=== PATIENT | female | born 1970 | race African-American/Black ===

== ENCOUNTER 2020-07-25 15:38 | Observation (INO) | payer BC, SELFPAY ==
[2020-07-25] VITALS (25 sets, daily range): BP systolic 159–263; BP diastolic 86–141; PULSE 76–101; RESP 12–27; TEMP 36–37.2; O2SAT 96–100; BMI 32.8
--- NOTE | ~2020-07-25 | XR_ITS ---
EXAMINATION: XR chest 2V DATE: 07/25/2020 16:21 INDICATION: Hypertension. Palpitations. TECHNIQUE: PA and lateral views of the chest were obtained. COMPARISON: None FINDINGS: Lung volumes appear mildly decreased. No focal airspace opacities, pulmonary edema, pleural effusion or pneumothorax. Cardiac silhouette is mildly enlarged. Mediastinal silhouette is normal. Mild thorac ic spondylosis. IMPRESSION: 1. Cardiomegaly. No acute cardiopulmonary disease.. Reviewed, dictated and finalized at location A.
--- NOTE | 2020-07-25 15:55 | ECG_ITS ---
Measurements Intervals [place] Rate: 74 P: 36 NM: 166 QRS: 25 QRSD: 90 T: 126 QT: 395 QTc: 439 Interpretive Statements SINUS RHYTHM LEFT VENTRICULAR HYPERTROPHY AND ST-T CHANGE BORDERLINE ECG Electronically Signed On 07-25-2020 16:13:46 CDT by Bulmaro Delvalle D.O.
[2020-07-25 16:09] LABS: Basophils Percent Auto 0.6 % (0.2-1.2); Eosinophils Absolute Auto 0.1 K/mm3 (0-0.3); Eosinophils Percent Auto 2.2 % (0-4.4); Hematocrit 37.3 % (37.0-47.0); Hemoglobin 11.5 g/dL (12.0-15.0); Immature Granulocyte Absolute 0.01 K/mm3 (0.00-0.031); Immature Granulocyte Percent A 0.3 % (0-0.5); Lymphocytes Percent Auto 31.5 % (18.3-44.2); Mean Corpuscular HGB Conc 30.8 g/dl (32-36); Mean Corpuscular Hemoglobin 24.9 pg (26-34); Mean Corpuscular Volume 80.7 fl (80-100); Mean Platelet Volume 10.4 fl (7.4-10.4); Monocytes Absolute Auto 0.4 K/mm3 (0.1-0.6); Monocytes Percent Auto 12.6 % (2.6-8.5); Neutrophils Absolute Auto 1.7 K/mm3 (1.3-6.7); Neutrophils Percent Auto 52.8 % (45.5-73.1); Platelet Count Result 249 k/mm3 (150-375); Red Blood Count 4.62 M/mm3 (4.2-5.4); Red Cell Distribution Width 15.4 % (11.5-14.5); White Blood Count 3.2 K/mm3 (4.5-10.0)
[2020-07-25 16:21] LABS: Alanine Aminotransferase 19 U/L (4-35); Albumin Level 4.1 g/dL (3.5-5.1); Alkaline Phosphatase 75 U/L (38-126); Anion Gap 8 mmol/L (8-16); Aspartate Amino Transferase 29 U/L (14-36); Bilirubin,Total 0.2 mg/dL (0.2-1.3); Blood Urea Nitrogen 14 mg/dL (7-17); Calcium 8.2 mg/dL (8.4-10.2); Carbon Dioxide 25 mmol/L (22-30); Chloride 104 mmol/L (98-107); Estimated CRCL calculation 86 ml/min; Estimated Glomerular Filt Rate > 60; Glucose 102 mg/dL (65-105); Potassium 3.1 mmol/L (3.4-5.0); Sodium 137 mmol/L (137-145)
[2020-07-25 16:25] LABS: Atypical Lymphocytes Present; Platelet Estimate Adequate (Adequate)
[2020-07-25 16:26] LABS: Hypochromasia 2+ (NORMAL)
--- NOTE | 2020-07-25 16:26 | ED.RECABL ---
HPI - Recheck/Abnormal Lab/Rx General Chief Complaint: Recheck/Abnormal Lab/Rx Stated Complaint: high bp Time Seen by Provider: 07/25/20 16:09 Source: RN notes reviewed History of Present Illness HPI narrative: Patient presents to emergency department from Dr. Delvalle's office for hypertension. Patient states he has a history of hypertension but stopped taking her medication several years ago she has not seen the doctor in several years went to the doctor today and noted to have blood pressure with a systolic of 260 she states that she has been asymptomatic she denies any headaches vision changes chest pain shortness of breath numbness tingling of the extremities or any other symptoms she states she has been having some intermittent palpitations but denies any palpitations at this time Related Data Allergies Allergy/AdvReac Type Severity Reaction Status Date / Time Penicillins Allergy Intermediate Hives / Verified 07/25/20 13:42 Red Face Review of Systems Review of Systems: Narrative: Gen.: Denies fevers or chills Eyes: Denies eye pain or visual change ENT: Denies congestion Respiratory: Denies shortness of breath or cough CV: See HPI GI: Denies abdominal pain nausea, emesis or diarrhea Musculoskeletal: Denies back pain or muscle pain Neuro: Denies numbness, tingling, weakness or focal weakness Skin: Denies rash Except as documented, all other systems reviewed and negative [facility] Past Medical History Medical History (Updated 07/25/20 @ 18:54 by Tomas Malave DO) Hypertension Social History Social History Smoking status: Current every day smoker Tobacco type: cigars Alcohol intake: current Gender identity (if verbalized by the patient): Female Exam Narrative: Exam Narrative: APPEARANCE: No acute distress, nontoxic, resting in bed EYES: EOMI HEENT: Normocephalic, atraumatic, OMM RESPIRATORY: No respiratory distress Clear to auscultation bilaterally with no rhonchi wheezing or rales. CARDIOVASCULAR: Regular rate and rhythm without murmurs rubs or gallops. ABDOMINAL: Soft, nontender, nondistended, no rebound or guarding MUSCULOSKELETAl: Moves all extremities. No clubbing, cyanosis or edema. NEURO: Awake and alert x 4. Following commands, speech normal, no focal deficits SKIN:: Warm, dry. No rashes lesions or abrasions PSYCHIATRIC: Normal affect/mood, Course Course Emergency Course: Discussed with Dr. Delavlle he does see the patient the office today wrote outpatient hypertensive medication today but he referred the patient to the ED for further evaluation Patient actually given hydralazine in ED but with continued elevated blood pressure Discussed with JUAN Torres for Dr. Lynch presentation work-up agrees with admission at this time. This time we will do gentle decrease of blood pressure and recommend starting patient on nifedipine XL 30 mg Discussed with patient and family results of workup and diagnosis. Discussed need for admission. Patient and family understand and agree to current treatment plan Vital Signs Vital signs: Vital Signs Temperature 97.1 F L 07/25/20 15:40 Pulse Rate 81 07/25/20 15:40 Respiratory Rate 18 07/25/20 15:40 Blood Pressure 263/111 H 07/25/20 15:40 Pulse Oximetry 98 07/25/20 15:40 Temperature 97.1 F L 07/25/20 15:40 Pulse Rate 87 07/25/20 18:45 Respiratory Rate 19 07/25/20 18:45 Blood Pressure 209/107 H 07/25/20 18:31 Pulse Oximetry 100 07/25/20 18:45 MDM - Recheck/Abnormal Lab/Rx Lab Data Result diagrams: 07/25/20 15:57 07/25/20 15:57 Labs: Lab Results 07/25/20 07/25/20 07/25/20 Range/Units 15:57 15:57 15:57 WBC 3.2 L (4.5-10.0) K/mm3 RBC 4.62 (4.2-5.4) M/mm3 Hgb 11.5 L (12.0-15.0) g/dL Hct 37.3 (37.0-47.0) % MCV 80.7 (80-100) fl MCH 24.9 L (26-34) pg MCHC 30.8 L (32-36) g/dl RDW 15.4 H (11.5-14.5) % Plt Count
[2020-07-25 16:30] LABS: Add Urine Microscopic? YES; Appearance Urine Cloudy (Clear); Bacteria Urine Trace /hpf; Bilirubin Urine Negative (Negative); Blood Urine Negative (Negative); Color Urine Yellow (Yellow); Glucose Urine UA Negative (Negative); Ketones Urine Negative (Negative); Leukocyte Esterase Ur Negative LEU/UL (Negative); Mucus Urine Heavy /lpf; Nitrate Urine Negative (Negative); Protein Urine 2+ mg/dL (Negative); RBC Urine 0-2 /hpf (0-2); Specific Grav Ur 1.028 (1.001-1.035); Squamous Epithelial Cell Urine Many /hpf (Few); WBC Urine 0-3 /hpf
[2020-07-25] MEDS: hydrALAZINE HCL 20 MG/ML VIAL 10 MG IV PUSH (16:40)
[2020-07-25 16:52] LABS: Troponin I 0.014 ng/mL (0.000-0.034)
[2020-07-25] MEDS: NIFEdipine 30 MG TAB.ER.24 PO (17:48)
[2020-07-25] MEDS: POTASSIUM CHLORIDE 20 MEQ TABLET 40 MEQ PO (17:49)
--- NOTE | 2020-07-25 19:19 | ADMGEN ---
This patient, Alejandra Payne, was admitted to IMU Room 211-01 at 1853. Patient/family oriented to hospital policies and general routines including ID bracelet, bed and alarms, visiting hours, pain management, procedures, bathroom and other care routines, personal items, smoking policy, room service/diet, and visiting hours. Information on how to activate the Rapid Response Team has been discussed. Patient/Family are encouraged to report perceived risks to care and to ask questions if they do not understand what they are told or what they should do.
[2020-07-25] MEDS: METOPROLOL TARTRATE INJ 5 MG/5 ML VIAL 10 MG IV PUSH (20:47)
[2020-07-25 21:38] LABS: Troponin I 0.027 ng/mL (0.000-0.034)
[2020-07-25] MEDS: amLODIPine BESYLATE 5 MG TABLET 10 MG PO (21:38)
[2020-07-25] MEDS: ACETAMINOPHEN 325 MG TABLET 650 MG PO (21:52)
--- NOTE | 2020-07-25 22:09 | PM.IMHP ---
H&P: HPI History of Present Illness Date/Time: 07/25/20 22:09 Chief Complaint: High blood pressure Narrative: 49-year-old female with a past medical history of essential hypertension who presented to the ER from solution coordinator's office due to severely elevated blood pressures. The patient reports the for the last several weeks he has been having intermittent episodes of palpitations. She reports that the palpitations are wearing her heart will beat 3 or 5 times in a row really hard. She denies any significant chest pain. She has not been having any shortness of breath, cough or congestion. She does have a history of hypertension but has been off of her home antihypertensive for the last year and a half. She used to be on combination of Norvasc valsartan and hydrochlorothiazide. She denies having any headaches or visual changes. She does report some dizziness if she bends over and then stands up. She has not been checking her blood pressures at home. She has not seen her primary care physician in at least a year and a half. She had seen Dr. Delvalle in 2018 due to history of murmur and she went in for an outpatient visit for evaluation of her palpitations. At the office visit it was noted that her blood pressures were above 220 systolic. She was referred to the ER for further management. The patient denies any cough, congestion, fevers or chills. She denies any dyspnea on exertion. She denies any known COVID exposures. The patient's heart rate is have been between the upper 80s up to the low 100s since admission. She denies any orthopnea, paroxysmal nocturnal dyspnea or lower extremity swelling. Review of Systems Review of Systems: Narrative: 12 systems were reviewed with pertinent positives and negatives per HPI. Except as documented in the HPI, all other systems were reviewed and are negative. [facility] Past Medical History Medical History (Updated 07/25/20 @ 23:00 by Juju Alanis DO) Hypertension Tobacco abuse Surgical History Surgical History (Updated 07/25/20 @ 22:51 by Juju Alanis DO) History of dilation and curettage (~2018) History of tubal ligation (~2005) Uterine polyp (~12/2018) Status post polypectomy Family History Family History (Updated 07/25/20 @ 22:59 by Juju Alanis DO) Father , Age 42 Cirrhosis of liver Alcoholism PTSD (post-traumatic stress disorder) Mother , In her late 50s Cancer Sibling Hypertension Social History Social History (Updated 07/25/20 @ 22:56 by Juju Alanis DO) Social History: She lives at home with her 15-year-old son. She also has a 28-year-old son and a 22-year-old daughter is who her no longer living at home. She has been for 27 years. She has been smoking 2-3 cigars for the last 3 years. She drinks 2-3 glasses a wine each weekend. 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 She denies any illicit substance use. Primary care physician: Dr. Halley Peres Code status: Full code Surrogate decision maker: Smoking status: Current every day smoker Tobacco type: cigars Alcohol intake: current Drinks per week: 3 Substance use: never Gender identity (if verbalized by the patient): Female Spiritual care concerns: No Meds Home Medications and Allergies Home Medications Medication Instructions Recorded Confirmed Type amlodipine 5 mg-valsartan 160 1 tablet PO DAILY #30 tablet 07/25/20 07/25/20 Rx mg-hydrochlorothiazide 12.5 mg tablet Allergies Allergy/AdvReac Type Severity Reaction Status Date / Time Penicillins Allergy Intermediate Hives / Verified 07/25/20 13:42 Red Face Vital Signs Vital Signs - 24 hr 07/25/20 15:40 07/25/20 15:55 07/25/20 16:50 Temperature 97.1 F L Pulse Rate 81 76 82 Respiratory Rate 18 22 H 22 H Blood Pressure 263/111 H 261/141 H Pulse Oximetry 98 99 100 07/25/20 17:00 07/25/20 17
[2020-07-26] VITALS (10 sets, daily range): BP systolic 147–172; BP diastolic 74–99; PULSE 68–83; RESP 16–18; TEMP 36.1–36.6; O2SAT 97–100
--- NOTE | 2020-07-26 | ECHO_ITS ---
Patient Info Name: Alejandra Kaminski Box Age: 49 years : 1970 Gender: Female Ht: 64 in Wt: 191 lbs BSA: 2.01 m2 HR: 78 bpm BP: 157 / 74 mmHg Technical Quality: Good Exam Date: 07/26/2020 8:52 AM Exam Location: [facility] Pulmonary Exam Room: 211 Patient Status: Inpatient Admit Date: 07/25/2020 Staff Ordering Physician: Juju Alanis DO Factory Maintenance Technician: Kelle Kan RDCS Attending Provider: José Miguel Rodriguez PA-C Referring Physician: Zeke VIDAL; Exam Type: CA echo doppler color flow Study Info Indications - palpitations htn murmur Complete two-dimensional, color flow and Doppler transthoracic echocardiogram is performed. Summary 1. Complete two-dimensional, color flow and Doppler transthoracic echocardiogram is performed. 2. Left ventricular chamber dimension is normal. 3. There is moderate to severe concentric increased left ventricular wall thickness. 4. Left ventricular systolic function is hyperdynamic, estimated at >70%. 5. The left ventricular diastolic function is grade I diastolic dysfunction. 6. E/e' 13 is mildly elevated. 7. Left atrial chamber dimension is moderately enlarged. 8. The mitral valve has mildly calcified annulus. 9. There is trace mitral valve regurgitation. 10. There is trace tricuspid valve regurgitation. 11. No pulmonary hypertension, estimated pulmonary arterial systolic pressure is 29 mmHg. Left Ventricle E/e' 13 is mildly elevated. There is moderate to severe concentric increased left ventricular wall thickness. Left ventricular chamber dimension is normal. Left ventricular systolic function is hyperdynamic, estimated at >70%. The left ventricular diastolic function is grade I diastolic dysfunction. Right Ventricle Right ventricular chamber dimension is normal. Right ventricular systolic function is normal. Left Atria Left atrial chamber dimension is moderately enlarged. Right Atria Right atrial chamber dimension is normal. Aortic Valve The aortic valve is trileaflet. There is no aortic valve stenosis. There is no aortic valve regurgitation. Pulmonic Valve There is no pulmonic regurgitation. Mitral Valve The mitral valve has mildly calcified annulus. There is no mitral valve stenosis. There is trace mitral valve regurgitation. Tricuspid Valve There is trace tricuspid valve regurgitation. No pulmonary hypertension, estimated pulmonary arterial systolic pressure is 29 mmHg. Pericardium/Pleural There is no pericardial effusion. Inferior Vena Cava Normal inferior vena cava with >50% collapse upon inspiration consistent with normal right atrial pressure, 5 mmHg. Aorta The aortic root size at the sinus of Valsalva is normal. Left Ventricular Outflow Tract Name Value Normal LVOT 2D LVOT Diameter 2.0 cm LVOT Doppler LVOT Peak Gradient 6 mmHg LVOT Mean Gradient 3 mmHg LVOT VTI 21 cm LVOT VTI/AV VTI Ratio 0.7 LVOT Stroke Volume 66 ml LVOT CO 16.
[2020-07-26 05:15] LABS: Basophils Percent Auto 0.4 % (0.2-1.2); Eosinophils Absolute Auto 0.1 K/mm3 (0-0.3); Eosinophils Percent Auto 1.5 % (0-4.4); Hematocrit 37.6 % (37.0-47.0); Hemoglobin 11.7 g/dL (12.0-15.0); Immature Granulocyte Absolute 0.02 K/mm3 (0.00-0.031); Immature Granulocyte Percent A 0.4 % (0-0.5); Lymphocytes Absolute Auto 1.59 K/mm3 (0.9-3.2); Lymphocytes Percent Auto 34.3 % (18.3-44.2); Mean Corpuscular HGB Conc 31.1 g/dl (32-36); Mean Corpuscular Hemoglobin 24.6 pg (26-34); Mean Platelet Volume 10.6 fl (7.4-10.4); Monocytes Absolute Auto 0.5 K/mm3 (0.1-0.6); Monocytes Percent Auto 11.2 % (2.6-8.5); Neutrophils Absolute Auto 2.4 K/mm3 (1.3-6.7); Neutrophils Percent Auto 52.2 % (45.5-73.1); Platelet Count Result 285 k/mm3 (150-375); Red Blood Count 4.76 M/mm3 (4.2-5.4); Red Cell Distribution Width 15.2 % (11.5-14.5); White Blood Count 4.6 K/mm3 (4.5-10.0)
[2020-07-26 05:30] LABS: Anion Gap 5 mmol/L (8-16); Blood Urea Nitrogen 8 mg/dL (7-17); Calcium 8.2 mg/dL (8.4-10.2); Carbon Dioxide 28 mmol/L (22-30); Chloride 105 mmol/L (98-107); Cholesterol 145 mg/dL (0-200); Estimated CRCL calculation 81 ml/min; Estimated Glomerular Filt Rate > 60; Glucose 98 mg/dL (65-105); Potassium 3.3 mmol/L (3.4-5.0); Sodium 138 mmol/L (137-145); Triglycerides 143 mg/dL (<150)
[2020-07-26 05:38] LABS: LDL Cholesterol Direct 85 mg/dL
[2020-07-26 05:46] LABS: HDL Direct 35 mg/dL
[2020-07-26] MEDS: POTASSIUM CHLORIDE 20 MEQ PACKET (FOR LIQUID) 40 MEQ PO (08:15)
[2020-07-26] MEDS: amLODIPine BESYLATE 5 MG TABLET PO (08:16)
[2020-07-26] MEDS: METOPROLOL TARTRATE 50 MG TAB PO (08:17)
[2020-07-26] MEDS: ENOXAPARIN 40 MG/0.4 ML SYRINGE SUB-Q (08:18)
--- NOTE | 2020-07-26 11:30 | PM.DS ---
DS: Admitting Diagnosis Admitting Diagnosis Admitting Diagnosis: Hypertensive urgency DS: Discharge Diagnosis Discharge Diagnosis (1) Hypertensive urgency: Code(s): I16.0 - Hypertensive urgency Status: Acute Assessment and Plan: BP still elevated, but more reasonable at 172/99 most recently after initiating metoprolol tartrate 50 mg Q12hr and amlodipine 5 mg daily this morning. She is tolerating medication thus far. Discussed with Dr. Delvalle who is okay with this regimen. BP will obviously need to be eventually lowered to a more reasonable value, however, Dr. Delvalle will follow as outpatient and titrate as needed/tolerated. Echo read by Dr. Delvalle shows normal LV dimension, mod-severe concentric wall thickness, and hyperdynamic LV function at >70%; likely related to uncontrolled HTN. Discharge on metoprolol 50 mg Q12hr and amlodipine 5 mg daily F/u with Dr. Delvalle in 1 week per his recommendations She understands to check her BP daily and to return to ER if BP significantly elevated (2) Hypokalemia: Code(s): E87.6 - Hypokalemia Status: Acute Assessment and Plan: K3.3, replaced. Will have her f/u with PCP Repeat BMP in 1 week (3) Leukopenia: Qualifiers: Leukopenia type: unspecified Qualified Code(s): D72.819 - Decreased white blood cell count, unspecified Code(s): D72.819 - Decreased white blood cell count, unspecified Status: Acute Assessment and Plan: Resolved today. No s/sx of infection. Patient afebrile Repeat CBC in 1 week F/u with PCP (4) Tobacco abuse: Code(s): Z72.0 - Tobacco use Status: Acute Assessment and Plan: Patient provided with tobacco cessation information DS: Summary Hospital Course Reason for hospitalization: Hypertensive urgency Hospital Course: Date of arrival: 07/25/20 Date of discharge: 07/26/20 Patient is a 49 yo F with history of 49-year-old female with a past medical history of essential hypertension who presented to the ER from cloth boil off machine operator's office due to severely elevated blood pressures. Patient reportedly had intermittent palpitations as well in the several weeks prior to arrival. While in her cloth boil off machine operator's (Dr. Delvalle) office, she was found to have blood pressures above 220 systolic, thus was referred to the ED for further management. While in the ED, her BP was confirmed to be upwards of 230s/110s sys. She was given hydralazine 10 mg IV, nifedipine 30 mg PO with some improvements in her BP, but still significantly elevated. Serum potassium was also found to be mildly low at 3.1 and this was replaced. Patient admitted to the hospitalist service under this setting for further management/treatment. Please see H&P for further details. After admission, Patient was given metoprolol tartrate 10 mg IV and amlodipine 10 mg PO. this improved blood pressure down to 140s-170s sys. She was started on metoprolol tartrate 50 mg PO q12 and amlodipine 5 mg PO daily. Her BP lowered to 170s/90s sys on day of discharge. Echo performed showed findings significant for normal LV dimension, mod-severe concentric wall thickness, and hyperdynamic LV function at >70%; felt to be likely related to uncontrolled HTN. Discussed with Dr. Delvalle who was agreeable to current BP regimen and the [id number] (recently prescribed but not filled) was to be held. Patient was feeling better on day of discharge and plan was for her to check her BP daily after taking her morning medications for her next Cardiology appointment. She was to follow up with Dr. Delvalle in 1 week and her PCP after discharge. She was to repeat BMP and CBC in 1 week as she was found to have improving hypokalemia and leukopenia during stay. Patient agreeable and comfortable with plan for discharge. Patient hemodynamically stable and
== END 2020-07-26 12:59 | disposition home or self-care (01) ==
LOC: ANHED 16:09 → ANHIMU 18:19
PROVIDERS: Admitting Provider Internal Medicine; Emergency Provider Emergency Medicine; PCP Family Medicine; Visit Provider Family Medicine
DX: I16.0 Hypertensive urgency (principal); E87.6 Hypokalemia; D72.819 Decreased white blood cell count, unspecified; I10 Essential (primary) hypertension; F17.290 Nicotine dependence, other tobacco product, uncomplicated
CPT/HCPCS: 36415; 71046; 80048; 80053; 80061; 81001; 81025; 84484; 85025; 93005; 93306; 96372; 96374; 96375; 99285; A9270; G0378; J0360; J1650

== ENCOUNTER → 2020-11-05 16:17 | Outpatient (CLI) | payer BC, SELFPAY ==
--- NOTE | ~2020-11-05 | MM_ITS ---
EXAMINATION: MM screening bruna BI w perfecto HISTORY: Screening mammogram TECHNIQUE: Craniocaudal and mediolateral oblique 3-D tomosynthesis images were obtained and synthetic 2-D images were generated. CAD analysis was submitted and interpreted. COMPARISON: 12/12/2018 bilateral digital screening mammogram 11/05/2016 bilateral digital screening mammogram BREAST PARENCHYMAL COMPOSITION: The breasts are heterogeneously dense, which may obscure small masses . FINDINGS: There is no evidence of suspicious mass, calcification, or architectural distortion to sugg est malignancy in either breast. There has been no suspicious interval change. IMPRESSION: 1. No mammographic evidence of malignancy. 2. Recommend routine screening mammography in one year. BI-RADS Category 1: Negative Reviewed, dictated and finalized at location A.
== END ==
PROVIDERS: PCP Family Medicine; Visit Provider Obstetrics & Gynecology
DX: Z12.31 Encounter for screening mammogram for malignant neoplasm of breast (principal)
CPT/HCPCS: 77063; 77067

== ENCOUNTER 2023-01-24 00:06 | Day surgery (SDC) | payer BC, SELFPAY ==
[2023-01-12 15:25] VITALS: BMI 34.4
[2023-01-24 07:44] VITALS: BP 131/86; PULSE 58; RESP 18; TEMP 36; O2SAT 100
[2023-01-24] MEDS: LACTATED RINGERS 1,000 ML 150 ML IV CONT (07:52)
--- NOTE | 2023-01-24 08:25 | PM.HPGS ---
History of Present Illness History of Present Illness Consent: Risks, benefits, and alternatives have been discussed and questions answered. Patient agrees to proceed with procedure. Chief complaint: neoplasm screening Narrative: Alejandra Payne is a 52 year old female here for first screening colonoscopy Review of Systems Constitutional: Constitutional: Denies headache(s) and Denies weakness Eyes: Eyes: Denies blurry vision ENT: Reports Normal hearing present, Denies headache(s) and Denies neck pain Cardiovascular: Cardiovascular: Denies chest pain and Denies dyspnea Respiratory: Respiratory: Denies dyspnea Gastrointestinal: Gastrointestinal: Reports no additional gastrointestinal complaints Genitourinary: Genitourinary: Denies dysuria Musculoskeletal: Musculoskeletal: Denies neck pain Integumentary/Breasts: Skin/Breast: Denies dry skin Neurologic: Reports Normal hearing present, Denies headache(s) and Denies weakness Psychiatric: Psychiatric: Denies anxiety Endocrine: Endocrine: Denies change in body appearance Hematologic/Lymphatic: Hematologic/Lymphatic: Denies easy bleeding Allergic/Immunologic: Allergic/Immunologic: Denies urticaria PMF Past Medical History Medical History (Updated 01/24/23 @ 08:26 by Nilton Toribio MD) Colon cancer screening Hypertension Tobacco abuse Surgical History Surgical History History of dilation and curettage (~2018) History of tubal ligation (~2005) Uterine polyp (~12/2018) Status post polypectomy Family History Family History Father , Age 42 Cirrhosis of liver Alcoholism PTSD (post-traumatic stress disorder) Mother , In her late 50s Cancer Sibling Hypertension Mother Family history of malignant neoplasm, Onset Age: 60 Patient's mother is , Onset Age: 65 Father Family history of liver disease, Onset Age: 49 Other Family history of arthritis Social History Social History Social History: She lives at home with her 15-year-old son. She also has a 28-year-old son and a 22-year-old daughter is who her no longer living at home. She has been for 27 years. She has been smoking 2-3 cigars for the last 3 years. She drinks 2-3 glasses a wine each weekend. 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 She denies any illicit substance use. Primary care physician: Dr. Halley Peres Code status: Full code Surrogate decision maker: Smoking status: Current every day smoker Tobacco type: cigars Alcohol intake: current Drinks per week: 7 Alcohol use details: Socially Substance use: never Substance use type: does not use Living arrangements: with family Gender identity (if verbalized by the patient): Female Spiritual care concerns: No Meds Home Medications and Allergies Home Medications Medication Instructions Recorded Confirmed Type carvedilol 25 mg tablet 25 mg PO Q12H #180 tabs 07/07/22 01/12/23 Rx estradiol 1 mg tablet 1 mg PO DAILY 01/12/23 01/12/23 History progesterone micronized 100 mg 200 mg PO DAILY 01/12/23 01/12/23 History capsule valsartan 320 1 tablet PO DAILY 01/12/23 01/12/23 History mg-hydrochlorothiazide 25 mg tablet Allergies Allergy/AdvReac Type Severity Reaction Status Date / Time Penicillins Allergy Intermediate Hives / Verified 01/24/23 07:42 Red Face Vital Signs Vital Signs - 24 hr 01/24/23 07:44 Temperature 96.8 F L Pulse Rate 58 L Respiratory Rate 18 Blood Pressure 131/86 Pulse Oximetry 100 Oxygen Delivery Room Air Exam Const: General: comfortable and no acute distress HENMT: Face/Nose/Sinus: Normal nares present Eyes: General: appearance normal, both e
--- NOTE | 2023-01-24 08:31 | WPDANESEPPF ---
Anes - Initial Pre Proc Eval Procedure: Operation Date: 01/24/23 09:00 Proposed Procedures p Screening Colonoscopy - Nilton Toribio MD Date/Time: 01/24/23 08:31 Surgeon: Nilton Toribio MD Pre Op Diagnosis: neoplasm screening Patient Data Age: 52 Gender: F Height: 1.63 m Weight: 89.9 kg Last Vital Signs Temp 96.8 F L 01/24/23 07:44 Pulse 58 L 01/24/23 07:44 Resp 18 01/24/23 07:44 BP 131/86 01/24/23 07:44 Pulse Ox 100 01/24/23 07:44 O2 Del Method Room Air 01/24/23 07:44 Allergies Allergy/AdvReac Type Severity Reaction Status Date / Time Penicillins Allergy Intermediate Hives / Verified 01/24/23 07:42 Red Face Home Medications Medication Instructions Recorded Confirmed Type carvedilol 25 mg tablet 25 mg PO Q12H #180 tabs 07/07/22 01/12/23 Rx estradiol 1 mg tablet 1 mg PO DAILY 01/12/23 01/12/23 History progesterone micronized 100 mg 200 mg PO DAILY 01/12/23 01/12/23 History capsule valsartan 320 1 tablet PO DAILY 01/12/23 01/12/23 History mg-hydrochlorothiazide 25 mg tablet Patient hx anesthesia problems: none Family hx anesthesia problems: none Results Review: All pre-operative results and documents have been reviewed as part of the pre-operative evaluation. [facility] Past Medical History Medical History (Updated 01/24/23 @ 08:26 by Nilton Toribio MD) Colon cancer screening Hypertension Tobacco abuse Surgical History Surgical History History of dilation and curettage (~2018) History of tubal ligation (~2005) Uterine polyp (~12/2018) Status post polypectomy Family History Family History Father , Age 42 Cirrhosis of liver Alcoholism PTSD (post-traumatic stress disorder) Mother , In her late 50s Cancer Sibling Hypertension Mother Family history of malignant neoplasm, Onset Age: 60 Patient's mother is , Onset Age: 65 Father Family history of liver disease, Onset Age: 49 Other Family history of arthritis Social History Social History Social History: She lives at home with her 15-year-old son. She also has a 28-year-old son and a 22-year-old daughter is who her no longer living at home. She has been for 27 years. She has been smoking 2-3 cigars for the last 3 years. She drinks 2-3 glasses a wine each weekend. 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 She denies any illicit substance use. Primary care physician: Dr. Halley Peres Code status: Full code Surrogate decision maker: Smoking status: Current every day smoker Tobacco type: cigars Alcohol intake: current Drinks per week: 7 Alcohol use details: Socially Substance use: never Substance use type: does not use Living arrangements: with family Gender identity (if verbalized by the patient): Female Spiritual care concerns: No Anes - Eval Final PreProcedure Day of Procedure 01/24/23 08:31 Patient weight: obese Heart: regular rate and rhythm Lungs: clear to auscultation Airway: Mallampati scale class II Neurological: alert and oriented Last oral intake: >/= 8 hours ASA classification: II Emergent: no Anesthetic plan: proceed Anesthesia type and monitoring: general GIVS and standard monitoring Results Review: All pre-operative results and documents have been reviewed as part of the pre-operative evaluation. Informed Consent: The patient's anesthetic plan and its attendant risks and benefits were discussed with the patient/family/POA. Questions were solicited and answers provided to the satisfaction of the patient/family/POA.
[2023-01-24 08:52] VITALS: BP 112/65; PULSE 60; RESP 17; O2SAT 100
[2023-01-24 09:02] VITALS: BP 116/77; PULSE 55; RESP 22; O2SAT 100
[2023-01-24 09:12] VITALS: BP 125/87; PULSE 54; RESP 19; O2SAT 100
== END 2023-01-24 09:21 | disposition home or self-care (01) ==
PROVIDERS: PCP Family Medicine; Visit Provider Internal Medicine Gastroenterology
PROC: 0DJD8ZZ Inspection of Lower Intestinal Tract, Via Natural or Artificial Opening Endoscopic (ICD-10-PCS; CPT 45378; principal; 2023-01-24 09:00)
DX: Z12.11 Encounter for screening for malignant neoplasm of colon (principal); K57.30 Diverticulosis of large intestine without perforation or abscess without bleeding; K64.8 Other hemorrhoids; I10 Essential (primary) hypertension; F17.290 Nicotine dependence, other tobacco product, uncomplicated; E66.9 Obesity, unspecified; Z68.34 Body mass index [BMI] 34.0-34.9, adult
CPT/HCPCS: 45378; J2704; J7120

== ENCOUNTER → 2023-02-17 10:16 | Outpatient (CLI) | payer BC, SELFPAY ==
--- NOTE | ~2023-02-17 | MM_ITS ---
EXAMINATION: MM screening bruna BI w perfecto HISTORY: Screening TECHNIQUE: Craniocaudal and mediolateral oblique 3-D tomosynthesis images were obtained and synthetic 2-D images were generated. CAD analysis was submitted and interpreted. COMPARISON: Comparison to multiple prior studies sequentially, with oldest reviewed study dated 10/2016. BREAST PARENCHYMAL COMPOSITION: Breast composed of scattered areas of fibroglandular density FINDINGS: There is no evidence of suspicious mass, calcification, or architectural distortion to sugg est malignancy in either breast. There has been no suspicious interval change. IMPRESSION: 1. No mammographic evidence of malignancy. 2. Recommend routine screening mammography in one year. BI-RADS Category 1: Negative Reviewed, dictated and finalized at location A.
== END ==
PROVIDERS: PCP Family Medicine; Visit Provider Obstetrics & Gynecology
DX: Z12.31 Encounter for screening mammogram for malignant neoplasm of breast (principal)
CPT/HCPCS: 77063; 77067

== ENCOUNTER 2024-07-20 15:34 | Outpatient (CLI) | payer BC, SELFPAY ==
--- NOTE | ~2024-07-20 | MM_ITS ---
EXAMINATION: MM screening bruna BI w perfecto HISTORY: Screening TECHNIQUE: Craniocaudal and mediolateral oblique 3-D tomosynthesis images were obtained and synthetic 2-D images were generated. CAD analysis was submitted and interpreted. COMPARISON: Comparison to multiple prior studies sequentially, with oldest reviewed study dated 10/2016. BREAST PARENCHYMAL COMPOSITION: Dense: The breasts are heterogeneously dense, which may obscure small masses FINDINGS: There is no evidence of suspicious mass, calcification, or architectural distortion to sugg est malignancy in either breast. There has been no suspicious interval change. IMPRESSION: 1. No mammographic evidence of malignancy. 2. Recommend routine screening mammography in one year. BI-RADS Category 1: Negative Reviewed, dictated and finalized at location B.
== END 2024-07-20 15:35 | disposition home or self-care (01) ==
LOC: MICIMG 15:35
PROVIDERS: PCP Obstetrics & Gynecology; Visit Provider Obstetrics & Gynecology
DX: Z12.31 Encounter for screening mammogram for malignant neoplasm of breast (principal)
CPT/HCPCS: 77063; 77067